=== PATIENT | female | born 1945 | race Caucasian/White ===

== ENCOUNTER 2020-05-16 19:51 | Emergency (ER) | payer OTHER ==
[~2020-05-16] VITALS: Ht 149.9 cm; Wt 54.0 kg
[2020-05-16] MEDS ORDERED: FISH OIL 1,001000 M2 PO (20:10)
[2020-05-16] MEDS ORDERED: LIPITOR20 MG PO (20:11)
[2020-05-16] MEDS ORDERED: CARVEDILOL12.5 MG PO (20:11)
[2020-05-16] MEDS ORDERED: CALCIUM CARBON500 MG PO (20:11)
[2020-05-16] MEDS ORDERED: LASIX 40 MG TAB40 MG PO (20:11)
[2020-05-16] MEDS ORDERED: NIASPAN ER 101000 M1 PO (20:11)
[2020-05-16] MEDS ORDERED: FRUIT C-100100 MG PO (20:11)
[2020-05-16] MEDS ORDERED: ALLOPURINOL 10100 M3 PO (20:12)
[2020-05-16] MEDS ORDERED: ALENDRONATE SOD70 MG PO (20:12)
[2020-05-16 20:56] VITALS: BP 145/70
== END 2020-05-16 20:57 | disposition home or self-care (01) ==
LOC: M.ERS 19:51
DX: S80.12XA Contusion of left lower leg, initial encounter (principal); I10 Essential (primary) hypertension; E78.5 Hyperlipidemia, unspecified; X58.XXXA Exposure to other specified factors, initial encounter; Y93.89 Activity, other specified; Y92.89 Other specified places as the place of occurrence of the external cause; Y99.8 Other external cause status